=== PATIENT | female | born 1960 | race Caucasian/White ===

== ENCOUNTER 2022-10-12 14:05 | Inpatient (IN) | payer MEDICARE, SELFPAY ==
[2022-10-12] VITALS (19 sets, daily range): BP systolic 132–203; BP diastolic 72–118; PULSE 92–140; RESP 14–23; TEMP 36.9; O2SAT 94–100; BMI 30.7
--- NOTE | 2022-10-12 14:39 | ECG_ITS ---
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 Measurements Intervals [place] Rate: 131 P: 71 WA: 143 QRS: -37 QRSD: 79 T: 62 QT: 306 QTc: 453 Interpretive Statements SINUS TACHYCARDIA LEFT AXIS DEVIATION [QRS AXIS < -30] VOLTAGE CRITERIA FOR LVH [MEETS CRITERIA IN ONE OF: R(aVL), S(V1), R(V5), R(V5/V6)+S(V1)] No previous ECG available for comparison Electronically Signed On 10-13-2022 19:38:19 CDT by Adrian Irby M.D. [id number]
--- NOTE | 2022-10-12 14:39 | CTR_ITS ---
PROCEDURE INFORMATION: Exam: CT Head Without Contrast Exam date and time: 10/12/2022 4:28 PM Age: 62 years old Clinical indication: Altered mental status/memory loss TECHNIQUE: Imaging protocol: Computed tomography of the head without contrast. Radiation optimization: All CT scans at this facility use at least one of these dose optimization techniques: automated exposure control; mA and/or kV adjustment per patient size (includes targeted exams where dose is matched to clinical indication); or iterative reconstruction. REPORTING DATA: Count of CT and Cardiac NM exams in prior 12 months: This patient has received 0 known CTs and 0 known cardiac nuclear medicine studies in the 12 months prior to the current study. COMPARISON: No relevant prior studies available. RADIATION DOSE METRICS: Total DLP (mGy-cm): 1202.78 FINDINGS: Brain: No intracranial hemorrhage. No mass effect, edema or midline shift. There are vague areas of decreased attenuation within the periventricular white matter likely secondary to chronic microvascular changes. Mild age related cerebral volume loss resulting in prominence of cortical sulci. Cerebral ventricles: Unremarkable for age and degree of cerebral volume loss. Paranasal sinuses: Visualized sinuses are unremarkable. No fluid levels. Mastoid air cells: Visualized mastoid air cells are well aerated. Bones/joints: Unremarkable. No acute fracture. Soft tissues: Unremarkable. CT/CT head wo con* [id number] IMPRESSION: No acute intracranial abnormality.
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
[2022-10-12] MEDS: haloperidol inj 5 mg/mL INJ 1 mL IVP (14:58)
[2022-10-12] MEDS: sodium chloride 0.9% 1,000 ML 999 ML IV ×2 (14:58→17:41)
[2022-10-12 14:59] LABS: Basophils # 0.1 10^3/uL (0.0-0.1); Basophils % 0.3 %; Hematocrit 41.4 % (37.0-47.0); Hemoglobin 13.2 g/dL (11.5-15.3); Lymphocytes # 1.7 10^3/uL (0.8-4.8); Lymphocytes % 7.1 %; Mean Corpuscular HGB Conc 31.9 g/dL (30.0-36.0); Mean Corpuscular Volume 87.9 fl (81-99); Mean Platelet Volume 11.1 fL (7.4-10.4); Neutrophils # 20.59 10^3/uL (1.8-7.7); Neutrophils % 86.2 %; Nucleated Red Blood Cells % 0 %; Platelet Count 478 10^3/cmm (130-400); Red Blood Count 4.71 10^6/uL (4.1-5.3); Red Cell Distribution Width 13.6 % (12.1-15.1); White Blood Count 23.9 10^3/uL (4.0-10.0)
[2022-10-12 15:11] LABS: Alanine Aminotransferase 20 U/L (0-33); Albumin Level 4.3 g/dL (3.5-5.2); Alkaline Phosphatase 130 U/L (35-105); Anion Gap 23.8 (5-19); Aspartate Amino Transferase 27 U/L (0-32); Blood Urea Nitrogen 10 mg/dL (8-23); Calcium 9.4 mg/dL (8.5-10.5); Carbon Dioxide 19 mmol/L (22-29); Chloride 94 mmol/L (98-107); Globulin 2.6 g/dL (1.3-4.6); Glucose 270 mg/dL (65-115); Osmolality Calculated 285 mOsm/kg (285-295); Potassium 3.8 mmol/L (3.5-5.1); Sodium 133 mmol/L (136-145); Total Bilirubin 0.5 mg/dL (0.15-1.2); Total Protein 6.9 g/dL (6.6-8.7)
[2022-10-12 15:14] LABS: Lactate (Lactic Acid level) 4.7 mmol/L (0.5-2.2)
[2022-10-12 15:18] LABS: Procalcitonin 0.05 ng/mL (0-0.5)
[2022-10-12] MEDS: LORazepam 2 mg/mL INJ 1 mL 1 MG IVP (16:07)
[2022-10-12] MEDS: piperacillin-tazobactam 3.375 GM in sodium chloride 0.9% (plus) 50 ML IV (17:41)
[2022-10-12 17:53] LABS: Amphetamines Screen Urine Negative (Negative); Barbiturates Screen Urine Negative (Negative); Benzodiazepines Screen Urine Negative (Negative); Cocaine Screen Urine Negative (Negative); Opiate Screen Urine Negative (Negative); PCP Screen Urine Negative (Negative); THC Screen Urine Positive (Negative)
[2022-10-12 17:56] LABS: Add Urine Microscopic? YES; Bilirubin Urine Neg (Negative); Blood Urine 2+ (Negative); Glucose Urine UA 4+ (Normal); Ketones Urine 3+ (Negative); Leukocyte Esterase Urine 1+ (Negative); Nitrate Urine Negative (Negative); Protein Urine Trace (Negative); Urine Appearance Hazy (CLEAR); Urine Color Yellow (Yellow); Urobilinogen Urine Norm (Negative); pH Urine 5 (5-7)
[2022-10-12 17:57] LABS: Bacteria Urine 1+ /hpf; Hyaline Casts Urine 0-4 /lpf; RBC Urine 0-4 /hpf (0-2); WBC Urine 15-25 /hpf (0-5)
[2022-10-12 17:58] LABS: Add Urine Culture? Yes
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
[2022-10-12 18:21] LABS: ABG PCO2 34.8 mmHg (35-45); ABG PH Result 7.41 (7.35-7.45); Arterial Blood Gas Hematocrit 37.1 % (37-47); Base Excess ABG -2.2 mmol/L (-2.0-2.0); Blood Gas Allen Test Pos; Blood Gas Operator Identificat CAK; Blood Gas Sample Site Radial, left; Blood Gas Sample Type Arterial; Oxygen Device ROOM AIR; PO2 ABG 78.8 mmHg (80.0-100.0)
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
[2022-10-12 19:18] LABS: Ketone (Acetest) Serum Positive (Negative)
[2022-10-12 19:19] LABS: Troponin(5th) Baseline 26 ng/L (0-10)
[2022-10-12 19:33] LABS: NT Pro B Type Natriuretic Pept 143 pg/mL (0-125)
[2022-10-12 19:44] LABS: Chol HDL Ratio 2.73 mg/dL (0.0-4.40); Cholesterol 164 mg/dL (0-200); HDL Cholesterol 60 mg/dL (60-100); LDL Cholesterol Calculated 91 mg/dL (50-129); LDL HDL Ratio 1.52 RATIO (0.00-3.22); Lipase 23 U/L (13-60); Triglycerides 67 mg/dL (0-150)
[2022-10-12] MEDS: haloperidol inj 5 mg/mL INJ 1 mL 1 MG IM (19:46)
--- NOTE | 2022-10-12 19:47 | PC.NURSE ---
Addendum entered by Anne Lopez RN 10/12/22 20:15: Unable to complete NIH stroke scale, pt is alert and agitated but will not follow commands. Will attempt to complete later this shift. Original Note: Pt arrived to ICU 4 via stretcher, on continuous monitoring, w/ RN @bedside @1923. Pt is screaming about killing herself to God. Pt also screamed, God do you still love me, a goddamned bitch like me, take me home to be your . Pt stated she is in pain but is unable to provide a location or a number on a scale from 0 to 10. Pt is alert but unable to correctly answer any orientation questions. BP is elevated 192/110. HR 125, ST. SpO2 96% RA. RR 20. Skin tears noted on bilateral forearms. Continuos HR/BP/SpO2 monitoring continued. One to one sitter @bedside.
[2022-10-12 19:48] LABS: Alcohol Level < 10 mg/dL (0-10)
[2022-10-12] MEDS: sodium chloride 0.9% 1,000 ML 125 ML IV (20:01)
[2022-10-12] MEDS: pantoprazole 40 mg SDV IVP (20:02)
[2022-10-12] MEDS: enoxaparin 40 mg/0.4 mL Syringe SUBCUT (20:03)
--- NOTE | 2022-10-12 20:06 | ECG_ITS ---
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 Measurements Intervals [place] Rate: 106 P: 57 MS: 136 QRS: -24 QRSD: 91 T: 17 QT: 360 QTc: 479 Interpretive Statements SINUS TACHYCARDIA BORDERLINE LEFT AXIS DEVIATION [QRS AXIS < -20] MODERATE VOLTAGE CRITERIA FOR LVH, CONSIDER NORMAL VARIANT [MEETS CRITERIA IN ONE OF: R(aVL), S(V1), R(V5), R(V5/V6)+S(V1)] ABNORMAL RHYTHM ECG Compared to ECG 10/12/2022 14:49:59 No significant changes Electronically Signed On 10-13-2022 23:20:48 CDT by Adrian Irby M.D. [id number]
[2022-10-12 20:23] LABS: Creatine Phosphokinase 644 U/L (26-192)
[2022-10-12 20:41] LABS: Troponin 5 2HR 21.17 ng/L (0-10)
[2022-10-12 20:53] LABS: Troponin 5 2HR Delta -4.83 ABS# (0-10)
--- NOTE | 2022-10-12 21:56 | PC.NURSE ---
Pt zaid, Ev , rekha , and Kamila when this RN applied optifoam dressings to skin tears. Due to increased agitation, SCDs will not be applied @this time.
[2022-10-13] VITALS (49 sets, daily range): BP systolic 111–182; BP diastolic 60–133; PULSE 87–129; RESP 12–30; TEMP 36.6–36.9; O2SAT 90–97
[2022-10-13] MEDS: morphine 4 mg/mL SDV 1 mL 1 MG IVP ×2 (00:58→20:11)
[2022-10-13 01:24] LABS: Basophils % 0.2 %; Hematocrit 35.3 % (37.0-47.0); Hemoglobin 11.1 g/dL (11.5-15.3); Lymphocytes # 2.6 10^3/uL (0.8-4.8); Lymphocytes % 17.1 %; Mean Corpuscular HGB Conc 31.4 g/dL (30.0-36.0); Mean Corpuscular Hemoglobin 27.8 pg (28.0-34.0); Mean Corpuscular Volume 88.3 fl (81-99); Mean Platelet Volume 10.4 fL (7.4-10.4); Monocytes # 0.8 10^3/uL (0.2-0.9); Neutrophils # 11.97 10^3/uL (1.8-7.7); Neutrophils % 77.4 %; Nucleated Red Blood Cells % 0 %; Platelet Count 360 10^3/cmm (130-400); Red Cell Distribution Width 13.7 % (12.1-15.1); White Blood Count 15.5 10^3/uL (4.0-10.0)
[2022-10-13] MEDS: piperacillin-tazobactam 3.375 GM in sodium chloride 0.9% (plus) 50 ML IV ×3 (01:44→17:29)
[2022-10-13 01:52] LABS: Troponin 5 6HR 19.75 ng/L (0-10)
[2022-10-13 01:56] LABS: Lactic Sepsis W/Reflex 0.8 mmol/L (0.5-2.2)
[2022-10-13 01:58] LABS: Alanine Aminotransferase 15 U/L (0-33); Albumin Level 3.8 g/dL (3.5-5.2); Alkaline Phosphatase 112 U/L (35-105); Anion Gap 16.9 (5-19); Aspartate Amino Transferase 28 U/L (0-32); Blood Urea Nitrogen 7 mg/dL (8-23); Calcium 8.5 mg/dL (8.5-10.5); Carbon Dioxide 23 mmol/L (22-29); Chloride 103 mmol/L (98-107); Globulin 1.9 g/dL (1.3-4.6); Glomerular Filtration Rate 84.2 mL/min (90-130); Glucose 155 mg/dL (65-115); Osmolality Calculated 289 mOsm/kg (285-295); Phosphorus 3.4 mg/dL (2.5-4.5); Potassium 3.9 mmol/L (3.5-5.1); Sodium 139 mmol/L (136-145); Total Bilirubin 0.4 mg/dL (0.15-1.2); Total Protein 5.7 g/dL (6.6-8.7)
[2022-10-13 03:05] LABS: Estmated Average Glucose 151; Hemoglobin A1C 6.9 % (4.0-6.0)
--- NOTE | 2022-10-13 04:34 | PC.NURSE ---
Unable to accurately measure urine output, pt does not have a Butcher and is not orientated enough to request bedpan. Bed lopez has been offered @regular intervles throughout the night. 1 void that soaked a mukesh noted.
[2022-10-13 07:25] LABS: Glucose Point of Care 145 mg/dL (70-110)
[2022-10-13] MEDS: insulin lispro 100 unit/1 mL SUBCUT ×2 (07:33→17:35)
[2022-10-13] MEDS: sodium chloride 0.9% 1,000 ML 125 ML IV ×3 (08:33→16:45)
--- NOTE | 2022-10-13 08:41 | PC.NURSE ---
not very talkative this am occasionally will answer question or repeat back your question but cooperative at this time
--- NOTE | 2022-10-13 10:30 | PC.NURSE ---
96 hour hold paper work explained to pt she refuses to talk to staff refuses to answer any question about history ect
--- NOTE | 2022-10-13 10:32 | PC.NURSE ---
Patient placed on a [address] Hurd. 96 hour hold right read and reviewed with patient. Patient told this nurse to shut up. Nurse left a copy of rights at the bedside.
[2022-10-13 12:47] LABS: Glucose Point of Care 97 mg/dL (70-110)
[2022-10-13] MEDS: haloperidol inj 5 mg/mL INJ 1 mL 1 MG IM (13:59)
--- NOTE | 2022-10-13 14:06 | PC.NURSE ---
awake food ordered refused to talk to nurse started yelling and kicking bed repeatedly refused to calm down at bedside with pt given haldol IM at this time
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
[2022-10-13] MEDS: enoxaparin 40 mg/0.4 mL Syringe SUBCUT (17:29)
[2022-10-13] MEDS: pantoprazole 40 mg SDV IVP (17:29)
[2022-10-13 17:37] LABS: Glucose Point of Care 145 mg/dL (70-110)
--- NOTE | 2022-10-13 18:03 | PC.NURSE ---
few bites of evening meal request staff to leave her alone up to bsc prior incontente of urine linen change done and cleaned
[2022-10-14] VITALS (33 sets, daily range): BP systolic 135–203; BP diastolic 71–143; PULSE 85–141; RESP 12–31; TEMP 36.5–38; O2SAT 91–96
[2022-10-14] MEDS: haloperidol inj 5 mg/mL INJ 1 mL 1 MG IM ×3 (00:26→23:12)
[2022-10-14] MEDS: sodium chloride 0.9% 1,000 ML 125 ML IV ×2 (00:27→10:52)
[2022-10-14] MEDS: morphine 4 mg/mL SDV 1 mL 1 MG IVP ×4 (00:31→22:37)
[2022-10-14] MEDS: piperacillin-tazobactam 3.375 GM in sodium chloride 0.9% (plus) 50 ML IV ×3 (03:32→17:42)
[2022-10-14 04:22] LABS: Basophils % 0.3 %; Eosinophils % 0.2 %; Hematocrit 33.2 % (37.0-47.0); Hemoglobin 10.5 g/dL (11.5-15.3); Lymphocytes # 2.3 10^3/uL (0.8-4.8); Lymphocytes % 19.7 %; Mean Corpuscular HGB Conc 31.6 g/dL (30.0-36.0); Mean Corpuscular Hemoglobin 28.1 pg (28.0-34.0); Mean Corpuscular Volume 88.8 fl (81-99); Mean Platelet Volume 10.7 fL (7.4-10.4); Monocytes # 0.8 10^3/uL (0.2-0.9); Monocytes % 6.4 %; Neutrophils # 8.62 10^3/uL (1.8-7.7); Nucleated Red Blood Cells % 0 %; Platelet Count 313 10^3/cmm (130-400); Red Blood Count 3.74 10^6/uL (4.1-5.3); Red Cell Distribution Width 13.8 % (12.1-15.1); White Blood Count 11.8 10^3/uL (4.0-10.0)
[2022-10-14 04:33] LABS: Alanine Aminotransferase 13 U/L (0-33); Alkaline Phosphatase 89 U/L (35-105); Anion Gap 14.1 (5-19); Aspartate Amino Transferase 22 U/L (0-32); Blood Urea Nitrogen 4 mg/dL (8-23); Calcium 7.9 mg/dL (8.5-10.5); Carbon Dioxide 24 mmol/L (22-29); Chloride 105 mmol/L (98-107); Globulin 2.4 g/dL (1.3-4.6); Glomerular Filtration Rate 100.6 mL/min (90-130); Glucose 110 mg/dL (65-115); Magnesium 2.1 mg/dL (1.7-2.3); Osmolality Calculated 288 mOsm/kg (285-295); Phosphorus 2.1 mg/dL (2.5-4.5); Potassium 3.1 mmol/L (3.5-5.1); Sodium 140 mmol/L (136-145); Total Bilirubin 0.4 mg/dL (0.15-1.2); Total Protein 5.4 g/dL (6.6-8.7)
--- NOTE | 2022-10-14 10:29 | PC.CHAP ---
Pastoral Care Encounter/Spiritual Assessment Type of Contact [] Declined forge heater visit [] Patient/Family/Request visit [] Outpatient visit [] Follow-up visit [] Physician referral [] Code/Alert [x] Routine visit [] Staff referral [] Actively dying [x] Patient sleeping [] Family support [] [] Out of room [] Palliative care [] [] Receiving care in room [] Pre-surgical visit [] Trauma [] Long length of stay [x] ICU visit [] Other: Relational/Emotional Strength [] Patient feels connected with others/family/visitors/staff [] Distress [] Loneliness/isolation [] Abandonment Spirituality of Patient [] Person of Marilia [] Attends Jew of their Marilia [] Believes in Prayer [] Reads Bible or Pentecostal materials [] There are Spiritual issues to be addressed Change Director Interventions [x] Prayer [] Active listening [] Non-anxious presence [] Spiritual/emotional support [] Crisis/trauma care [] Spiritual counseling [] Bereavement support [] Provided bereavement packet [] Provided Bible/devotional materials [] Provided toy/stuffed animal, coloring book to patient or family member [] Provided Communion [] Anointing/[place] [] Salvation [] Completed spiritual assessment [] Other: Impact on Illness or Injury [] Angry [] Fearful [] Anxious [] Often cries [] Exhaustion [] Unable to work [] Unable to attend hindu [] Unable to walk/stand [] Unable to read [] Unable to drive [] Unable to eat/drink [] Unable to sleep [] Unable to be with family [] Patient intubated [] Other: Summary Time spent with patient
--- NOTE | 2022-10-14 11:00 | PC.NURSE ---
Pt able to answer questions this AM. A&O to self, date and situation. Refused breakfast.
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
[2022-10-14 14:27] LABS: D Dimer 2.97 ug/mIFEU (0-0.59)
[2022-10-14 17:27] LABS: Glucose Point of Care 184 mg/dL (70-110)
[2022-10-14] MEDS: pantoprazole 40 mg SDV IVP (17:42)
[2022-10-14] MEDS: enoxaparin 40 mg/0.4 mL Syringe SUBCUT (17:42)
--- NOTE | 2022-10-14 18:30 | W.PM.NPUH&PS ---
Providers/Chief Complaint Admitting Physician: Stef Hurd MD Chief Complaint: AMS; COMBATIVE HPI NPU History of Present Illness Opal Doshi is a 62 year old female seen for a psychiatric evaluation. The patient was not able to be evaluated clearly as she was able to provide no useful history on interview in the intensive care unit. Per previous information provided on admission to the ICU, the patient had been treated with Haldol intramuscularly on a monthly basis until July as there had been reports that the patient had been increasingly agitated and confused. Patient was unable to provide any useful history today. Meds NPU Home Medications Medication Instructions Recorded Confirmed Last Taken Type nitrofurantoin 100 mg PO BID 10/12/22 10/12/22 Unknown History monohydrate/macrocrystals 100 mg capsule Allergies Allergy/AdvReac Type Severity Reaction Status Date / Time No Known Allergies Allergy Unverified 10/12/22 14:41 PFSH NPU PFSH: Medical History (Updated 10/13/22 @ 16:50 by Stef Hurd MD) History of diabetes mellitus History of UTI Mental Status Exam MSE Comments: She appeared in and out of consciousness was alert and responsive to her name. She was unable to provide the date month or year currently. She was unable to provide her current whereabouts. She had remained somewhat confused. Her thought process was nonlinear and not goal-directed. She did not appear at this time to be responding to internal stimuli. Her speech was slurred and slow in rate and difficult to understand. She did not endorse thoughts of hurting herself or others. Her attention and concentration were impaired. Her insight and judgment is poor and her impulse control appeared guarded. Vitals/I&O/Wt Last Vital Signs Temp 100.4 F H 10/14/22 11:00 Pulse 131 H 10/14/22 18:00 Resp 23 H 10/14/22 16:16 BP 165/92 10/14/22 18:00 Pulse Ox 95 10/14/22 07:18 O2 Del Method 10/14/22 07:18 10/14/22 10/14/22 10/14/22 06:59 14:59 22:59 Intake Total 1362.5 / 3075.00 1100 / 1100 Balance 1362.5 / 3075.00 1100 / 1100 Weight last 48 hrs Weight 86.319 kg Data NPU 10/14/22 02:56 10/14/22 02:56 Micro: Microbiology 10/12/22 17:31 Urine Culture - Final Urine,Clean Catch 10/12/22 14:58 Blood Culture - Preliminary Blood NEGATIVE TO DATE 10/12/22 14:58 Blood Culture - Preliminary Blood NEGATIVE TO DATE Microbiology 10/12/22 17:31 Urine,Clean Catch Urine Culture - Final 10/12/22 14:58 Blood Blood Culture - Preliminary NEGATIVE TO DATE 10/12/22 14:58 Blood Blood Culture - Preliminary NEGATIVE TO DATE A&P Assessment and plan (1) Altered mental status: (2) Suicidal ideation: Plan Patient continues to appear somewhat confused and psychiatry will continue to follow. We will attempt to gather collateral information hopefully from the regarding past treatment. Is possible that several medical problems could be complicated situation including delirium due to a variety of causes. She may be an appropriate admission once she is medically stabilized to the psychiatric unit. 1. Recommend Haldol for agitation as patient unlikely been on monthly Haldol decanoate in the recent past. 2 avoid use of benzodiazepines if possible as it may exacerbate current agitation. Attestations NPU Medical Necessity Statement*: NA Coding Level of Care Code Acute Code for Chg Fwd Diagnoses Altered mental status R41.82 Suicidal ideation R45.851
[2022-10-15] VITALS (28 sets, daily range): BP systolic 117–209; BP diastolic 52–116; PULSE 83–131; RESP 13–31; TEMP 36.3–36.6; O2SAT 89–96
[2022-10-15] MEDS: morphine 4 mg/mL SDV 1 mL 1 MG IVP ×4 (02:49→20:31)
[2022-10-15] MEDS: sodium chloride 0.9% 1,000 ML 125 ML IV (02:53)
[2022-10-15] MEDS: piperacillin-tazobactam 3.375 GM in sodium chloride 0.9% (plus) 50 ML IV ×3 (02:53→17:54)
[2022-10-15 03:32] LABS: Basophils # 0.1 10^3/uL (0.0-0.1); Basophils % 0.3 %; Eosinophils % 0.1 %; Hematocrit 36.2 % (37.0-47.0); Hemoglobin 11.4 g/dL (11.5-15.3); Lymphocytes # 3.5 10^3/uL (0.8-4.8); Lymphocytes % 19.2 %; Mean Corpuscular HGB Conc 31.5 g/dL (30.0-36.0); Mean Corpuscular Volume 88.9 fl (81-99); Mean Platelet Volume 10.8 fL (7.4-10.4); Monocytes # 0.9 10^3/uL (0.2-0.9); Monocytes % 4.8 %; Neutrophils % 74.7 %; Nucleated Red Blood Cells % 0 %; Platelet Count 350 10^3/cmm (130-400); Red Blood Count 4.07 10^6/uL (4.1-5.3); Red Cell Distribution Width 13.6 % (12.1-15.1); White Blood Count 17.9 10^3/uL (4.0-10.0)
[2022-10-15 03:48] LABS: Alanine Aminotransferase 13 U/L (0-33); Albumin Level 3.4 g/dL (3.5-5.2); Alkaline Phosphatase 99 U/L (35-105); Aspartate Amino Transferase 17 U/L (0-32); Blood Urea Nitrogen 4 mg/dL (8-23); Calcium 8.5 mg/dL (8.5-10.5); Carbon Dioxide 23 mmol/L (22-29); Chloride 102 mmol/L (98-107); Globulin 2.8 g/dL (1.3-4.6); Glomerular Filtration Rate 84.2 mL/min (90-130); Glucose 138 mg/dL (65-115); Magnesium 2.1 mg/dL (1.7-2.3); Osmolality Calculated 289 mOsm/kg (285-295); Phosphorus 2.2 mg/dL (2.5-4.5); Sodium 140 mmol/L (136-145); Total Bilirubin 0.5 mg/dL (0.15-1.2); Total Protein 6.2 g/dL (6.6-8.7)
[2022-10-15] MEDS: haloperidol inj 5 mg/mL INJ 1 mL 1 MG IM ×2 (09:45→21:08)
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
--- NOTE | 2022-10-15 13:42 | PC.SOCIAL ---
IMM UPDATED IMM dated and initialed copy given to patient and copy placed in chart
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
[2022-10-15 16:09] LABS: Glucose Point of Care 142 mg/dL (70-110)
[2022-10-15] MEDS: iohexol 350 mg/mL 500 mL Btl (per mL) IV (17:10)
--- NOTE | 2022-10-15 17:16 | CTR_ITS ---
PROCEDURE INFORMATION: Exam: CTA Chest With Contrast Exam date and time: 10/15/2022 5:02 PM Age: 62 years old Clinical indication: Shortness of breath; Patient HX: Limited HX due to PT condition; Additional info: R/O pe, elevated d dimer TECHNIQUE: Imaging protocol: Computed tomographic angiography of the chest with contrast. 3D rendering (Not supervised by radiologist): MIP and/or 3D reconstructed images were created by the technologist. Radiation optimization: All CT scans at this facility use at least one of these dose optimization techniques: automated exposure control; mA and/or kV adjustment per patient size (includes targeted exams where dose is matched to clinical indication); or iterative reconstruction. Contrast material: OMNIPAQUE 350; Contrast volume: 100 ml; Contrast route: INTRAVENOUS (IV); REPORTING DATA: Count of CT and Cardiac NM exams in prior 12 months: This patient has received 3 known CTs and 0 known cardiac nuclear medicine studies in the 12 months prior to the current study. COMPARISON: [place] [id number] 10/12/2022 6:32 PM RADIATION DOSE METRICS: Total DLP (mGy-cm): 412.3 FINDINGS: Pulmonary arteries: There is no evidence of filling defects within the pulmonary arterial circulation to suggest pulmonary embolism. Aorta: There is no thoracic aortic aneurysm or dissection. Lungs: There is partial atelectasis at the lung bases. There is some linear stranding in the right upper and middle lobes new from the previous examination most likely atelectasis. Pleural spaces: There is a small to moderate right pleural effusion new compared with 10/12/2022. There is no pneumothorax. There is small left pleural effusion and some mild atelectasis medially at the left lung base. Heart: Unremarkable. No cardiomegaly. No pericardial effusion. Mediastinal space: There is a right paratracheal mass measuring 3.1 x 4.3 x 3.1 cm extending through the thoracic inlet and apparently arising in the right lobe of the thyroid. Further evaluation with non urgent thyroid ultrasound recommended. Lymph nodes: There is no evidence of lymphadenopathy. Bones/joints: Acute appearing fractures of the right 3, 4, 5, 6 and 7th ribs delete that are again identified not significantly changed. There also appears to be old healed fracture anterior left 8th and 9th ribs not significantly changed. There is a small focal pulmonary consolidation laterally right upper lobe image number 182 series 6 which may represent some rounded atelectasis or mild focal lung injury related to the adjacent rib fractures. Minimal compression deformities superior endplates T5, T7 and T11 representing compression injuries of uncertain age not significantly changed.A large hiatal hernia is present. Soft tissues: Unremarkable. CT/CT angio chest PE protcl [id number] IMPRESSION: 1. No evidence of pulmonary embolism. 2. Rib fractures unchanged from 10/12/2022 3. Mild compression deformities at multiple levels unchanged from previous. 4. Moderate right pleural effusion new compared with 10/12/2022 5. Mild atelectasis 6. Large right thyroid nodule, further evaluation with non urgent thyroid ultrasound recommended COMMENTS: Consistent with the [employer]'s Incidental Findings Committee white paper (J Am Katherine Radiol 2015): In patients aged 35 years and older with an incidental thyroid nodule equal to or greater than 1.[address], MRI or extrathyroidal US, further evaluation with dedicated thyroid US is recommended for patients with normal life expectancy and without comorbidities. For smaller nodules without suspicious features, no further evaluation or follow up is recommended.
[2022-10-15] MEDS: hyDRALAzine 20 mg/mL INJ 1 mL 10 MG IVP (17:54)
[2022-10-15] MEDS: enoxaparin 40 mg/0.4 mL Syringe SUBCUT (17:54)
[2022-10-15] MEDS: pantoprazole 40 mg SDV IVP (17:54)
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
[2022-10-15] MEDS: OLANZapine 5 mg ODT PO (20:32)
[2022-10-16] VITALS (25 sets, daily range): BP systolic 103–189; BP diastolic 73–139; PULSE 74–131; RESP 11–31; TEMP 36.3–36.9; O2SAT 91–96
[2022-10-16] MEDS: morphine 4 mg/mL SDV 1 mL 1 MG IVP (00:33)
[2022-10-16] MEDS: haloperidol inj 5 mg/mL INJ 1 mL 1 MG IM (01:11)
[2022-10-16] MEDS: sodium chloride 0.9% 1,000 ML 125 ML IV ×2 (01:56→18:40)
[2022-10-16] MEDS: piperacillin-tazobactam 3.375 GM in sodium chloride 0.9% (plus) 50 ML IV ×3 (01:57→18:39)
[2022-10-16 04:41] LABS: Basophils # 0.1 10^3/uL (0.0-0.1); Basophils % 0.3 %; Eosinophils % 0.1 %; Hematocrit 36.2 % (37.0-47.0); Hemoglobin 11.5 g/dL (11.5-15.3); Lymphocytes % 13.1 %; Mean Corpuscular HGB Conc 31.8 g/dL (30.0-36.0); Mean Corpuscular Hemoglobin 27.8 pg (28.0-34.0); Mean Corpuscular Volume 87.7 fl (81-99); Mean Platelet Volume 10.2 fL (7.4-10.4); Monocytes % 6.8 %; Neutrophils # 11.85 10^3/uL (1.8-7.7); Neutrophils % 79.2 %; Nucleated Red Blood Cells % 0 %; Platelet Count 379 10^3/cmm (130-400); Red Blood Count 4.13 10^6/uL (4.1-5.3); Red Cell Distribution Width 13.8 % (12.1-15.1)
[2022-10-16 04:50] LABS: Blood Urea Nitrogen 5 mg/dL (8-23); Calcium 8.4 mg/dL (8.5-10.5); Carbon Dioxide 20 mmol/L (22-29); Chloride 104 mmol/L (98-107); Glomerular Filtration Rate 84.2 mL/min (90-130); Glucose 155 mg/dL (65-115); Magnesium 2.1 mg/dL (1.7-2.3); Osmolality Calculated 292 mOsm/kg (285-295); Sodium 141 mmol/L (136-145)
[2022-10-16 08:06] LABS: Glucose Point of Care 138 mg/dL (70-110)
[2022-10-16] MEDS: propranolol 20 mg Tablet 10 MG PO ×2 (08:07→17:04)
[2022-10-16 11:12] LABS: Glucose Point of Care 232 mg/dL (70-110)
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
[2022-10-16] MEDS: insulin lispro 100 unit/1 mL SUBCUT (12:36)
[2022-10-16] MEDS: acetaminophen 325 mg Tablet 650 MG PO ×2 (13:51→20:52)
[2022-10-16] MEDS: HYDROcodone-acetaminophen 5-325 mg Tablet 1 TAB PO (17:04)
--- NOTE | 2022-10-16 18:04 | P.NPUCON_ITS ---
Providers/Reason for Consult Consulting Physican/Specialty*: Trevor Pearce MD/Psychiatry Reason for Consult*: aggression, psychosis Attending Physician: Melonie Mac MD Psych Consult HPI History of Present Illness Opal Doshi is a 62 year old female admitted with altered mental status. Patient appeared much improved today. There were no acts of aggression towards her staff in the ICU. The patient had denied having any thoughts of hurting herself or others. She appeared in the presence of her . She had acknowledged that she had received psychiatric care in the past and had been placed on Haldol. Documents were reviewed and questions were raised in front of the patient regarding her diagnosis and she had stated that she did not have schizophrenia. She stated that she had stopped taking her Haldol for the past s everal months and was functioning fine. The had corroborated this information and the patient had stated that she may have received treatment in the past in [place] as previous records had supported. The patient stated that she was ready to go home. Meds Home Medications and Allergies Home Medications Medication Instructions Recorded Confirmed Last Taken Type nitrofurantoin 100 mg PO BID 10/12/22 10/12/22 Unknown History monohydrate/macrocrystals 100 mg capsule Allergies Allergy/AdvReac Type Severity Reaction Status Date / Time No Known Allergies Allergy Unverified 10/12/22 14:41 Current Medications Current Medications Generic Name Dose Route Start Last Admin Trade Name Freq PRN Reason Stop Dose Admin Acetaminophen 650 mg 10/12/22 18:19 10/16/22 13:51 Acetaminophen 325 Mg Tablet PO 650 mg Q6H PRN Administration Mild/Mod Pain Or Temp >/= 101 Hydrocodone Bitart/Acetaminophen 1 tab 10/16/22 16:52 10/16/22 17:04 Hydrocodone-Acetaminophen 5-325 Mg Tablet PO 1 tab Q6H PRN Administration MODERATE PAIN Amlodipine Besylate 5 mg 10/16/22 09:20 10/16/22 12:19 Amlodipine 5 Mg Tablet PO Not Given DAILY ELAYNE Enoxaparin Sodium 40 mg 10/12/22 18:30 10/15/22 17:54 Enoxaparin 40 Mg/0.4 Ml Syringe SUBCUT 40 mg Q24H ELAYNE Administration Haloperidol Lactate 1 mg 10/12/22 18:19 10/16/22 01:11 Haloperidol Inj 5 Mg/Ml Inj 1 Ml IM 1 mg Q4H PRN Administration AGITATION Hydralazine HCl 10 mg 10/15/22 17:30 10/15/22 17:54 Hydralazine 20 Mg/Ml Inj 1 Ml IVP 10 mg Q4H PRN Administration HYPERTENSION Sodium Chloride 1,000 mls @ 125 mls/hr 10/12/22 18:30 10/16/22 16:55 Sodium Chloride 0.9% IV Not Given .Q8H ELAYNE Piperacillin Sod/Tazobactam 50 mls @ 12.5 mls/hr 10/13/22 03:00 10/16/22 12:36 Sod 3.375 gm/ Sodium Chloride IV 12.5 mls/hr Q8H ELAYNE Administration Protocol Insulin Human Lispro 0 unit 10/13/22 08:00 10/16/22 12:36 Insulin Lispro 100 Unit/1 Ml SUBCUT 6 unit TIDWM ELAYNE Administration Protocol Lisinopril 20 mg 10/16/22 09:20 10/16/22 12:19 Lisinopril 20 Mg Tablet PO Not Given DAILY ELAYNE Morphine Sulfate 1 mg 10/12/22 18:19 10/16/22 00:33 Morphine 4 Mg/Ml Sdv 1 Ml IVP 1 mg Q4H PRN Administration SEVERE PAIN Olanzapine 5 mg 10/15/22 21:00 10/15/22 20:32 Olanzapine 5 Mg Odt PO 5 mg BEDTIME ELAYNE Administration Pantoprazole Sodium 40 mg 10/12/22 18:30 10/15/22 17:54 Pantoprazole 40 Mg Sdv IVP 40 mg Q24H ELAYNE Administration Propranolol HCl 10 mg 10/16/22 08:00 10/16/22 17:04 Propranolol 20 Mg Tablet PO 10 mg BID@08,16 ELAYNE Administration PFSH NPU PFSH: Medical History (Updated 10/16/22 @ 18:10 by Trevor Pearce MD) History of diabetes mellitus History of UTI Mental Status Exam MSE Comments: The patient was somewhat guarded on interview. She was alert and oriented to person place time and situation. Her thought process appeared mostly linear and logical. Her thought content showed no evidence of homicidal or suicidal ideation. There was some measure of guardedness and distrust noted. Her conversation was relatively superficial. Her mood was described as okay her affect appeared somewhat flat. Her speech was monotone in nature but was normal in rate and volume. She did not appear to be responding to internal stimuli. There were no overt delusions noted. Vitals/I&O/Wt Last Vital Signs Temp 98.1 F 10/16/22 04:00 Pulse 90 10/16/22 16:00 Resp 21 H 10/16/22 16:00 BP 150/84 10/16/22 16:00 Pulse Ox 95 10/16/22 08:00 O2 Del Method 10/16/22 08:00 10/16/22 10/16/22 10/16/22 06:59 14:59 22:59 Intake Total 200 / 1650 566 / 566 Output Total 0 / 360 Balance 200 / 1290 566 / 566 Data NPU 10/16/22 04:21 10/16/22 04:21 A&P Assessment and plan (1) Psychotic disorder: Plan Patient 62-year-old white female who appears to be recovering from the medical illness that it caused some change in her mental status. She does appear to have some underlying history of psychiatric issues although she is minimizing this at this time. She does not appear to be a threat right now to herself or others and will not require inpatient hospitalization but might benefit from follow-up with a psychiatrist and this will be recommended. We will resend the involuntary hospitalization and she can be discharged whenever medically cleared. Attestations NPU Medical Necessity Statement*: NA Coding Level of Care Code Acute Code for [facility] Diagnoses Psychotic disorder F29
[2022-10-16 18:13] LABS: Glucose Point of Care 218 mg/dL (70-110)
[2022-10-16] MEDS: enoxaparin 40 mg/0.4 mL Syringe SUBCUT (18:39)
[2022-10-16] MEDS: pantoprazole 40 mg SDV IVP (18:39)
[2022-10-16] MEDS: OLANZapine 5 mg ODT PO (20:52)
[2022-10-16 22:30] LABS: Glucose Point of Care 271 mg/dL (70-110)
[2022-10-17] VITALS (13 sets, daily range): BP systolic 124–185; BP diastolic 74–106; PULSE 74–103; RESP 13–25; TEMP 36.8–37; O2SAT 92–96
[2022-10-17] MEDS: HYDROcodone-acetaminophen 5-325 mg Tablet 1 TAB PO ×2 (00:38→10:59)
[2022-10-17] MEDS: hyDRALAzine 20 mg/mL INJ 1 mL 10 MG IVP ×2 (01:12→06:24)
[2022-10-17] MEDS: piperacillin-tazobactam 3.375 GM in sodium chloride 0.9% (plus) 50 ML IV (01:18)
[2022-10-17] MEDS: sodium chloride 0.9% 1,000 ML 125 ML IV (03:16)
[2022-10-17] MEDS: labetalol 5 mg/mL SDV 20mL 10 MG IVP (03:57)
[2022-10-17 05:15] LABS: Basophils % 0.3 %; Eosinophils # 0.1 10^3/uL (0.0-0.8); Hemoglobin 11.1 g/dL (11.5-15.3); Lymphocytes # 2.1 10^3/uL (0.8-4.8); Lymphocytes % 14.9 %; Mean Corpuscular HGB Conc 32.6 g/dL (30.0-36.0); Mean Corpuscular Hemoglobin 27.8 pg (28.0-34.0); Mean Corpuscular Volume 85.2 fl (81-99); Mean Platelet Volume 10.3 fL (7.4-10.4); Monocytes # 0.8 10^3/uL (0.2-0.9); Monocytes % 5.5 %; Neutrophils # 11.17 10^3/uL (1.8-7.7); Neutrophils % 77.8 %; Nucleated Red Blood Cells % 0 %; Platelet Count 419 10^3/cmm (130-400); Red Blood Count 3.99 10^6/uL (4.1-5.3); White Blood Count 14.3 10^3/uL (4.0-10.0)
[2022-10-17 05:36] LABS: Anion Gap 11.8 (5-19); Blood Urea Nitrogen 8 mg/dL (8-23); Carbon Dioxide 24 mmol/L (22-29); Chloride 107 mmol/L (98-107); Creatine Phosphokinase 137 U/L (26-192); Glomerular Filtration Rate 124.2 mL/min (90-130); Glucose 177 mg/dL (65-115); Osmolality Calculated 293 mOsm/kg (285-295); Sodium 140 mmol/L (136-145)
[2022-10-17 05:37] LABS: Potassium 2.8 mmol/L (3.5-5.1)
--- NOTE | 2022-10-17 06:00 | PC.NURSE ---
Potassium Patient's potassium level resulted critical at 2.8. Dr. Chino on the unit and notified; verbal order received for 40 meq KCL PO once and for a CMP to recheck potassium level at 1000. See MAR for details.
[2022-10-17] MEDS: potassium chloride ER 20 mEq Tablet 40 MEQ PO (06:23)
[2022-10-17 08:17] LABS: Glucose Point of Care 176 mg/dL (70-110)
[2022-10-17] MEDS: amlodipine 5 mg Tablet PO (08:28)
[2022-10-17] MEDS: propranolol 20 mg Tablet 10 MG PO (08:28)
[2022-10-17] MEDS: insulin lispro 100 unit/1 mL SUBCUT (08:29)
[2022-10-17] MEDS: haloperidol inj 5 mg/mL INJ 1 mL 1 MG IM (09:25)
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
[2022-10-17 10:16] LABS: Alanine Aminotransferase 13 U/L (0-33); Albumin Level 3.1 g/dL (3.5-5.2); Alkaline Phosphatase 89 U/L (35-105); Anion Gap 13.1 (5-19); Aspartate Amino Transferase 13 U/L (0-32); Blood Urea Nitrogen 5 mg/dL (8-23); Calcium 8.5 mg/dL (8.5-10.5); Carbon Dioxide 25 mmol/L (22-29); Chloride 105 mmol/L (98-107); Globulin 3.2 g/dL (1.3-4.6); Glomerular Filtration Rate 124.2 mL/min (90-130); Glucose 175 mg/dL (65-115); Osmolality Calculated 292 mOsm/kg (285-295); Potassium 3.1 mmol/L (3.5-5.1); Sodium 140 mmol/L (136-145); Total Bilirubin 0.5 mg/dL (0.15-1.2); Total Protein 6.3 g/dL (6.6-8.7)
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
[2022-10-17 17:58] LABS: Glucose Point of Care 149 mg/dL (70-110)
[2022-10-17] MEDS: cefUROXime 250 mg Tablet 500 MG PO (18:08)
--- NOTE | 2022-10-17 20:07 | US_ITS ---
WS: [id number] THYROID ULTRASOUND HISTORY: large nodule COMPARISON: Chest CT 10/15/2022 Right lobe: 3.7 cm x 3.6 cm x 5.9 cm (w x ap x l). Volume: 40.7 cm3. Enlarged thyroid. Very heterogeneous thyroid. The entire gland is enlarged and heterogeneous. There i s a more discrete nodule in the mid to lower RIGHT thyroid measuring 2.3 x 2.4 x 2.8 cm. There is mil d peripheral increased vascularity. This nodule is isoechoic to slightly hyperechoic with a few cysti c areas. Margins are ill-defined. Left lobe: 2.0 cm x 1.6 cm x 5.4 cm (w x ap x l). Volume: 8.8 cm3. Mildly heterogeneous gland. There are several small thyroid nodules. These nodules are trending towar ds iso to hyperechoic which is typically more benign. The largest is less than a centimeter. Isthmus: 0.3 cm. US/US thyroid 44417 IMPRESSION: 1. Enlarged heterogeneous RIGHT thyroid. 2. Mid RIGHT thyroid nodule, TI-rads 4. As this nodule is greater than 1.5 cm recommend nonemergent ultrasound-guided FNA.
--- NOTE | 2022-10-17 21:00 | PC.NURSE ---
Refused Acc-u check and insulin if needed.
[2022-10-17] MEDS: OLANZapine 5 mg ODT PO (21:07)
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
[2022-10-17] MEDS: haloperidol inj 5 mg/mL INJ 1 mL IM (23:56)
[2022-10-17] MEDS: diphenhydrAMINE 50 mg/mL SDV 1mL IM (23:57)
[2022-10-17] MEDS: LORazepam 2 mg/mL INJ 1 mL IM (23:57)
[2022-10-18 06:00] VITALS: RESP 16
[2022-10-18 08:29] LABS: Glucose Point of Care 178 mg/dL (70-110)
[2022-10-18] MEDS: propranolol 20 mg Tablet 10 MG PO (09:36)
[2022-10-18] MEDS: amlodipine 10 mg Tablet PO (09:37)
[2022-10-18] MEDS: cefUROXime 250 mg Tablet 500 MG PO (09:37)
[2022-10-18] MEDS: acetaminophen 325 mg Tablet 650 MG PO ×2 (10:20→14:33)
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
[2022-10-18 12:15] LABS: Glucose Point of Care 196 mg/dL (70-110)
[2022-10-18 14:00] VITALS: BP 165/81; PULSE 99; RESP 20; TEMP 36.8; O2SAT 95
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
[2022-10-18] MEDS: lidocaine 5% Patch 1 PATCH TOPICAL (14:33)
[2022-10-18 14:39] VITALS: BP 165/81; PULSE 99; RESP 20; TEMP 36.8; O2SAT 95
== END 2022-10-18 14:55 | disposition home or self-care (01) | DRG 872 ==
LOC: ER 18:17 → ICU 18:28 → NP 10-17 14:38
PROVIDERS: Internal Medicine; Admitting Provider Family Medicine; Emergency Provider Emergency Medicine; Visit Provider Psychiatry & Neurology Psychiatry
DX: A41.9 Sepsis, unspecified organism (principal); F23 Brief psychotic disorder; N39.0 Urinary tract infection, site not specified; S22.41XA Multiple fractures of ribs, right side, initial encounter for closed fracture; E87.20 Acidosis, unspecified; R45.851 Suicidal ideations; M62.82 Rhabdomyolysis; E11.65 Type 2 diabetes mellitus with hyperglycemia; T43.4X6A Underdosing of butyrophenone and thiothixene neuroleptics, initial encounter; Z91.128 Patient's intentional underdosing of medication regimen for other reason; V40.5XXA Car driver injured in collision with pedestrian or animal in traffic accident, initial encounter; E86.0 Dehydration; I10 Essential (primary) hypertension; E04.1 Nontoxic single thyroid nodule; R00.0 Tachycardia, unspecified
CPT/HCPCS: 36415; 36416; 36600; 70450; 71250; 71275; 72125; 74176; 76536; 80048; 80053; 80061; 80306; 80307; 81001; 82009; 82550; 82803; 82962; 83036; 83605; 83690; 83735; 83880; 84100; 84145; 84443; 84484; 85025; 85378; 86140; 87040; 87086; 93005; 94664; 96365; 96372; 96375; 96376; 99238; 99285; C9113; J0360; J1200; J1630; J1650; J1815; J2060; J2270; J2543; J3490; J7030; Q9967